=== PATIENT | female | born 1930 | race Caucasian/White ===

== ENCOUNTER 2016-12-13 18:02 | Observation (INO) | payer OTHER ==
[~2016-12-13] VITALS: Ht 170.2 cm; Wt 54.4 kg
[~2016-12-13 18:02] MED LIST: ALEN70TA55 PO; ASPI-231 PO; CHOL1CAP15 OR; DIPH25CA6 PO; MECL25CH20 PO; [UNRECOGNIZED DRUG - CODE] OR
[2016-12-13 20:05] LABS: Basophils # (auto) 0.1 uL; Basophils % (auto) 0.7 % (0.0-2.0); Eosinophils # (auto) 0 uL; Eosinophils % (auto) 0.5 % (0.0-7.0); Hematocrit 40.3 % (36.0-46.0); Hemoglobin 13.6 g/dL (12.2-16.2); Lymphocytes # (auto) 0.8 uL; Mean Corpuscular Hemoglobin 30.9 pg (28.0-32.0); Mean Corpuscular Hgb Conc. 33.8 g/dL (32.0-36.0); Mean Corpuscular Volume 91.6 fL (80.0-100.0); Mean Platelet Volume 8.1 fL (7.4-10.4); Monocytes # (auto) 0.8 uL; Neutrophils # (auto) 6.4 uL; Neutrophils % (auto) 78.8 % (37.0-80.0); Platelet Count (auto) 251 10^3/uL (140-450); White Blood Cell 8.2 10^3/uL (4.4-10.8)
[2016-12-13 20:26] LABS: Albumin 3.2 g/dL (3.4-5.0); Anion Gap 7 (5-15); Aspartate Aminotransferase 14 U/L (15-37); BUN/Creatinine Ratio 21.1; Blood Urea Nitrogen 28 mg/dL (7-18); Calcium 8.1 mg/dL (8.5-10.1); Carbon Dioxide 25 mmol/L (21-32); Chloride 107 mmol/L (98-107); GFR African American 48 mL/min; GFR Non-African American 40 mL/min; Glucose 115 mg/dL (74-106); Sodium 139 mmol/L (136-145)
[2016-12-13 20:30] LABS: Alkaline Phosphatase 86 U/L (45-117); Bilirubin, Total 0.5 mg/dL (0.2-1.0); Total Protein 7.1 g/dL (6.4-8.2)
[2016-12-14 06:15] VITALS: BP 129/69
== END 2016-12-14 11:31 | disposition home or self-care (01) | DRG 884 ==
LOC: EDBD 18:02 → ER 18:07 → OVERFLOW 12-14 00:12 → ER 12-14 11:31
PROVIDERS: ADMIT Emergency Medicine; ATTEND Emergency Medicine
DX: F03.90 Unspecified dementia, unspecified severity, without behavioral disturbance, psychotic disturbance, mood disturbance, and anxiety (principal); R55 Syncope and collapse; Z79.899 Other long term (current) drug therapy; Z79.82 Long term (current) use of aspirin; Z87.440 Personal history of urinary (tract) infections; W19.XXXA Unspecified fall, initial encounter; Y93.89 Activity, other specified; Y92.89 Other specified places as the place of occurrence of the external cause; Y99.8 Other external cause status
CPT/HCPCS: 36415; 70450; 80053; 84484; 85025; 93005; 99285; G0378; J7030

== ENCOUNTER 2017-03-24 12:56 | Inpatient (IN) | payer OTHER ==
[~2017-03-24] VITALS: Ht 167.6 cm; Wt 59.5 kg
[2017-03-24 14:02] LABS: Basophils # (auto) 0.1 uL; Basophils % (auto) 1.1 % (0.0-2.0); Eosinophils # (auto) 0.1 uL; Hematocrit 41.9 % (36.0-46.0); Hemoglobin 14.1 g/dL (12.2-16.2); Lymphocytes # (auto) 1.4 uL; Lymphocytes % (auto) 23.2 % (10.0-50.0); Mean Corpuscular Hemoglobin 30.5 pg (28.0-32.0); Mean Corpuscular Hgb Conc. 33.6 g/dL (32.0-36.0); Mean Corpuscular Volume 90.9 fL (80.0-100.0); Mean Platelet Volume 7.8 fL (7.4-10.4); Monocytes # (auto) 0.6 uL; Neutrophils # (auto) 3.8 uL; Neutrophils % (auto) 63.7 % (37.0-80.0); Platelet Count (auto) 288 10^3/uL (140-450); Red Cell Distribution Width 14.4 % (11.6-16.0)
[2017-03-24 14:12] LABS: Albumin 3.3 g/dL (3.4-5.0); Anion Gap 15 (5-15); Aspartate Aminotransferase 19 U/L (15-37); Blood Urea Nitrogen 27 mg/dL (7-18); Calcium 8.6 mg/dL (8.5-10.1); Carbon Dioxide 22 mmol/L (21-32); Chloride 106 mmol/L (98-107); GFR African American 45 mL/min; GFR Non-African American 37 mL/min; Glucose 115 mg/dL (74-106); Magnesium 2.2 mg/dL (1.6-2.6); Potassium 3.9 mmol/L (3.5-5.1); Sodium 143 mmol/L (136-145)
[2017-03-24 14:17] LABS: Alkaline Phosphatase 115 U/L (45-117); Bilirubin, Total 0.3 mg/dL (0.2-1.0); Total Protein 7.6 g/dL (6.4-8.2)
[2017-03-24 15:37] LABS: INR 1.03 (0.9-1.15); Partial Thromboplastin Time 27.5 sec (22.64-33.71); Prothrombin Time 11.2 sec (9.37-12.3)
[2017-03-24] MEDS ORDERED: FAMO-67 OR (15:42)
[2017-03-24] MEDS ORDERED: MULT1CHW52 PO (15:42)
[2017-03-24] MEDS ORDERED: BUDE0.5S NEB (15:42)
[2017-03-24] MEDS ORDERED: CHOL100079 OR (15:42)
[2017-03-24] MEDS ORDERED: MULT-415 OR (15:42)
[2017-03-24] MEDS ORDERED: DIPH25CA66 PO (15:44)
[2017-03-24] MEDS ORDERED: ONDA4TAB5 PO (15:44)
[2017-03-24] MEDS ORDERED: ACE325T PO (15:44)
[2017-03-24] MEDS ORDERED: ZOLP1SPR PO (15:44)
[2017-03-24] MEDS ORDERED: DOCU-137 PO (15:44)
[2017-03-24 16:10] LABS: Urine Bilirubin Negative (Negative); Urine Blood 2+ /uL (Negative); Urine Color Yellow (Yellow); Urine Glucose Normal (Normal); Urine Ketone Negative (Negative); Urine Nitrite POSITIVE (Negative); Urine RBC 22 /hpf (0 - 4); Urine Squamous Epithelial Cell FEW /hpf (<5); Urine Urobilinogen Normal (Negative); Urine WBC Clumps PRESENT /hpf (None Seen)
[2017-03-24] MEDS ORDERED: cefTRIAXone 1GM/50ML D5W 50 ML IV ONE (16:45)
[2017-03-24] MEDS ORDERED: SODIUM CHLORIDE 0.9% 1,000 ML IV ONE (17:00)
[2017-03-24] MEDS ORDERED: diphenhdrAMINE HCL 25 MG CAP PO PRN (17:45)
[2017-03-24] MEDS ORDERED: ALENDRONATE SODIUM 10 MG TAB PO SCH (17:45)
[2017-03-24] MEDS ORDERED: MECLIZINE HCL 25 MG TAB PO PRN (17:45)
[2017-03-24] MEDS ORDERED: ACETAMINOPHEN 325 MG TAB PO PRN (18:00)
[2017-03-24] MEDS ORDERED: DOCUSATE SOD 100 MG CAP PO PRN (18:00)
[2017-03-24] MEDS ORDERED: ONDANSETRON HCL 4 MG/2 ML VIAL IV PRN (18:00)
[2017-03-24] MEDS ORDERED: NITROGLYCERIN 0.4 MG SL TAB SL PRN (18:00)
[2017-03-24] MEDS ORDERED: HYDROcodone-ACET 5/325MG TAB PO PRN (18:00)
[2017-03-24] MEDS ORDERED: MORPHINE SULF INJ 2 MG/ML SYRINGE 1ML IV PRN ×2 (18:00)
[2017-03-24] MEDS ORDERED: TEMAZEPAM 15 MG CAP PO PRN (18:00)
[2017-03-24] MEDS ORDERED: LORazepam 2MG/ML-1ML VIAL IV ONE (18:30)
[2017-03-24] MEDS ORDERED: ASPirin-EC 81 mg tab PO ONE (18:30)
[2017-03-24] MEDS: FAMOTIDINE 20 MG TAB PO SCH (18:44)
[2017-03-24] MEDS: BOOST PLUS 8 ounce PO SCH (18:44)
[2017-03-24] MEDS: ENOXAPARIN SOD 30 MG/0.3 ML SYRINGE SC SCH (18:44)
[2017-03-24] MEDS: MULTIPLE VITAMIN TAB PO SCH (18:44)
[2017-03-24 20:20] VITALS: BP 126/73
[2017-03-24 21:40] VITALS: BP 109/57
[2017-03-24] MEDS: CLOTRIMAZOLE W/ BETAMETH TOPICAL CR 15 GM TUBE TOP SCH (21:58)
[2017-03-24] MEDS: SODIUM CHLOR 0.9% PF (SALINE LOCK) 10ML VIAL IV SCH (21:58)
[2017-03-24] MEDS: ATORVASTATIN 20 MG TAB PO SCH (21:58)
[2017-03-24] MEDS: BUDESONIDE (INHALATION) 0.5 MG/2 ML NEB NEB SCH (23:04)
[2017-03-25] VITALS (7 sets, daily range): BP systolic 109–149; BP diastolic 57–84
[2017-03-25 06:09] LABS: Basophils # (auto) 0.1 uL; Basophils % (auto) 1.1 % (0.0-2.0); Eosinophils # (auto) 0.2 uL; Eosinophils % (auto) 2.7 % (0.0-7.0); Hematocrit 37.3 % (36.0-46.0); Hemoglobin 12.6 g/dL (12.2-16.2); Lymphocytes # (auto) 1.1 uL; Lymphocytes % (auto) 17.9 % (10.0-50.0); Mean Corpuscular Hemoglobin 30.8 pg (28.0-32.0); Mean Corpuscular Hgb Conc. 33.7 g/dL (32.0-36.0); Mean Corpuscular Volume 91.2 fL (80.0-100.0); Mean Platelet Volume 7.8 fL (7.4-10.4); Monocytes # (auto) 0.7 uL; Monocytes % (auto) 11.3 % (0.0-12.0); Neutrophils # (auto) 4.2 uL; Platelet Count (auto) 263 10^3/uL (140-450); Red Cell Distribution Width 14.3 % (11.6-16.0); White Blood Cell 6.3 10^3/uL (4.4-10.8)
[2017-03-25] MEDS: SODIUM CHLOR 0.9% PF (SALINE LOCK) 10ML VIAL IV SCH ×3 (06:21→21:48)
[2017-03-25 06:42] LABS: Albumin 2.7 g/dL (3.4-5.0); BUN/Creatinine Ratio 26.5; Bilirubin, Total 0.3 mg/dL (0.2-1.0); Calcium 8.2 mg/dL (8.5-10.1); Total Protein 6.3 g/dL (6.4-8.2)
[2017-03-25] MEDS: BOOST PLUS 8 ounce PO SCH ×3 (08:05→18:25)
[2017-03-25] MEDS: CLOTRIMAZOLE W/ BETAMETH TOPICAL CR 15 GM TUBE TOP SCH ×2 (10:00→22:00)
[2017-03-25] MEDS: CHOLECALCIFEROL (VITD3) 1,000 UNIT TAB PO SCH (10:19)
[2017-03-25] MEDS: FAMOTIDINE 20 MG TAB PO SCH (10:19)
[2017-03-25] MEDS: MULTIPLE VITAMIN TAB PO SCH (10:19)
[2017-03-25] MEDS: cefTRIAXone 1GM/50ML D5W 50 ML IV SCH (10:19)
[2017-03-25] MEDS: ASPirin-EC 81 mg tab PO SCH (10:20)
[2017-03-25] MEDS: BUDESONIDE (INHALATION) 0.5 MG/2 ML NEB NEB SCH ×2 (16:35→22:32)
[2017-03-25] MEDS: ENOXAPARIN SOD 30 MG/0.3 ML SYRINGE SC SCH (17:41)
[2017-03-25] MEDS: ATORVASTATIN 20 MG TAB PO SCH (21:48)
[2017-03-26 05:00] VITALS: BP 135/76
[2017-03-26] MEDS: SODIUM CHLOR 0.9% PF (SALINE LOCK) 10ML VIAL IV SCH ×2 (05:59→14:22)
[2017-03-26] MEDS: BOOST PLUS 8 ounce PO SCH ×3 (08:08→17:58)
[2017-03-26] MEDS: BUDESONIDE (INHALATION) 0.5 MG/2 ML NEB NEB SCH (08:35)
[2017-03-26 09:00] VITALS: BP 124/76
[2017-03-26] MEDS: cefTRIAXone 1GM/50ML D5W 50 ML IV SCH (09:00)
[2017-03-26] MEDS: CLOTRIMAZOLE W/ BETAMETH TOPICAL CR 15 GM TUBE TOP SCH (10:00)
[2017-03-26] MEDS: CHOLECALCIFEROL (VITD3) 1,000 UNIT TAB PO SCH (10:30)
[2017-03-26] MEDS: FAMOTIDINE 20 MG TAB PO SCH (10:30)
[2017-03-26] MEDS: MULTIPLE VITAMIN TAB PO SCH (10:30)
[2017-03-26] MEDS: ASPirin-EC 81 mg tab PO SCH (10:30)
[2017-03-26 13:00] VITALS: BP 119/73
[2017-03-26] MEDS: ENOXAPARIN SOD 30 MG/0.3 ML SYRINGE SC SCH (17:29)
[2017-03-30] MEDS ORDERED: ALENDRONATE SODIUM 10 MG TAB PO SCH (06:00)
== END 2017-03-26 18:27 | disposition home or self-care (01) | DRG 871 ==
LOC: ER 12:56 → EDBD 12:56 → OVERFLOW 12:57 → WEST WING 20:08
PROVIDERS: ADMIT Internal Medicine; ATTEND Internal Medicine
DX: A41.9 Sepsis, unspecified organism (principal); G93.41 Metabolic encephalopathy; E44.0 Moderate protein-calorie malnutrition; I13.0 Hypertensive heart and chronic kidney disease with heart failure and stage 1 through stage 4 chronic kidney disease, or unspecified chronic kidney disease; N39.0 Urinary tract infection, site not specified; I50.9 Heart failure, unspecified; N18.3 Chronic kidney disease, stage 3 (moderate); B02.9 Zoster without complications; M19.90 Unspecified osteoarthritis, unspecified site; I77.810 Thoracic aortic ectasia; J44.9 Chronic obstructive pulmonary disease, unspecified; J84.10 Pulmonary fibrosis, unspecified; F02.80 Dementia in other diseases classified elsewhere, unspecified severity, without behavioral disturbance, psychotic disturbance, mood disturbance, and anxiety; G30.9 Alzheimer's disease, unspecified; M81.0 Age-related osteoporosis without current pathological fracture; K59.00 Constipation, unspecified; I70.0 Atherosclerosis of aorta; G96.8 Other specified disorders of central nervous system; R00.1 Bradycardia, unspecified; Z79.899 Other long term (current) drug therapy; Z90.49 Acquired absence of other specified parts of digestive tract; Z68.21 Body mass index [BMI] 21.0-21.9, adult; Z80.8 Family history of malignant neoplasm of other organs or systems; Z79.82 Long term (current) use of aspirin
CPT/HCPCS: 36415; 51702; 70450; 71010; 80053; 81001; 83605; 83735; 84484; 85025; 85610; 85730; 87040; 87081; 87086; 87088; 87186; 92610; 93005; 93306; 93886; 94640; 94761; 95819; 96365; 96375; J0696

== ENCOUNTER 2018-04-10 13:19 | Observation (INO) | payer OTHER, MEDICAID ==
[~2018-04-10] VITALS: Ht 167.6 cm; Wt 54.4 kg
[~2018-04-10 13:19] MED LIST changes: +ACE325T PO; +BUDE0.5S NEB; +CHOL100079 OR; +DIPH25CA66 PO; +DOCU-137 PO; +FAMO-67 OR; +MULT-415 OR; +MULT1CHW52 PO; +ONDA4TAB5 PO; +ZOLP1SPR PO
[2018-04-10 14:04] LABS: Basophils # (auto) 0.1 uL; Basophils % (auto) 0.9 % (0.0-2.0); Eosinophils # (auto) 0.1 uL; Eosinophils % (auto) 1.5 % (0.0-7.0); Hematocrit 42.2 % (36.0-46.0); Hemoglobin 14.2 g/dL (12.2-16.2); Lymphocytes # (auto) 0.8 uL; Lymphocytes % (auto) 10.5 % (10.0-50.0); Mean Corpuscular Hemoglobin 31.4 pg (28.0-32.0); Mean Corpuscular Hgb Conc. 33.7 g/dL (32.0-36.0); Mean Corpuscular Volume 93.1 fL (80.0-100.0); Monocytes # (auto) 0.5 uL; Neutrophils % (auto) 80.1 % (37.0-80.0); Platelet Count (auto) 206 10^3/uL (140-450); Red Blood Cells 4.54 10^6/uL (4.0-5.20); Red Cell Distribution Width 15.6 % (11.8-14.3); White Blood Cell 7.5 10^3/uL (4.4-10.8)
[2018-04-10 14:22] LABS: Albumin 3.3 g/dL (3.4-5.0); BUN/Creatinine Ratio 15.9; Bilirubin, Total 0.4 mg/dL (0.2-1.0); Calcium 8.4 mg/dL (8.5-10.1); Potassium 3.8 mmol/L (3.5-5.1); Total Protein 7.2 g/dL (6.4-8.2)
[2018-04-10] MEDS ORDERED: LIDOCAINE 2% (LOCAL ANESTH.) PF 5ml SDV ONE ×2 (15:14→15:15)
[2018-04-10] MEDS ORDERED: LIDOCAINE 2%HCL (LOCAL ANESTH.) INJ 10ml MDV IJ ONE (15:30)
[2018-04-10] MEDS ORDERED: TETANUS-DIPTH-ACEL PERTUSSIS 0.5ML SYRG IM ONE (20:00)
[2018-04-10] MEDS ORDERED: cefTRIAXone 1GM/10ml IVPUSH 10 ML IV ONE (21:00)
[2018-04-10] MEDS ORDERED: SODIUM CHLORIDE 0.9% 1,000 ML IVB ONE (21:00)
[2018-04-10 22:12] LABS: Urine Bacteria FEW /hpf (None Seen); Urine Blood Negative /uL (Negative); Urine Mucus FEW (None Seen); Urine Specific Gravity 1.022 (1.001-1.035); Urine WBC 90 /hpf (0 - 5)
[2018-04-10 22:42] VITALS: BP 166/84
== END 2018-04-10 23:11 | disposition short-term general hospital (02) | DRG 159 ==
LOC: EDBD 13:19 → ER 13:19 → OVERFLOW 13:20 → ER 23:11
PROVIDERS: ADMIT Family Medicine; ATTEND Family Medicine
DX: S02.609A Fracture of mandible, unspecified, initial encounter for closed fracture (principal); S01.511A Laceration without foreign body of lip, initial encounter; F03.90 Unspecified dementia, unspecified severity, without behavioral disturbance, psychotic disturbance, mood disturbance, and anxiety; Z79.899 Other long term (current) drug therapy; I12.9 Hypertensive chronic kidney disease with stage 1 through stage 4 chronic kidney disease, or unspecified chronic kidney disease; N18.9 Chronic kidney disease, unspecified; Z87.440 Personal history of urinary (tract) infections; I25.10 Atherosclerotic heart disease of native coronary artery without angina pectoris; Z86.73 Personal history of transient ischemic attack (TIA), and cerebral infarction without residual deficits; W19.XXXA Unspecified fall, initial encounter; Y92.129 Unspecified place in nursing home as the place of occurrence of the external cause; Y93.89 Activity, other specified; Y99.8 Other external cause status
CPT/HCPCS: 12053; 36415; 70450; 70486; 72125; 80053; 81001; 82962; 85025; 90471; 90715; 96361; 96374; 99285; G0378; J2001; J7030; 12037